=== PATIENT | female | born 2005 | race Two or more races ===

== ENCOUNTER 2025-03-14 15:09 | Emergency (ER) | payer BC, MEDICAID, SELFPAY ==
[2025-03-14 15:10] VITALS: BMI 22.9
[2025-03-14 15:24] VITALS: BP 134/78; PULSE 99; RESP 18; TEMP 36.6; O2SAT 100
--- NOTE | 2025-03-14 16:52 | PD.EDRME ---
[facility]apid Medical Screening [facility] Arrival date/time: 03/14/25 15:09 This is a 19-year-old female that comes into the emergency room with complaints of throat pain and mid left sided back pain. Patient denies any trauma. Patient denies any other symptoms. Patient denies fever chills patient has a mild runny nose patient denies cough. I have greeted and performed a focused initial assessment of this patient. Initial appropriate labs ordered at this time. A comprehensive ED assessment and evaluation of the patient and analysis of all test and completion of medical decision making process will be conducted by additional ED provider. Chief Complaint: Back Pain/Injury Time Seen by Provider: 03/14/25 16:30 Vital signs: Vital Signs Temperature 97.9 F 03/14/25 15:24 Pulse Rate 99 03/14/25 15:24 Respiratory Rate 18 03/14/25 15:24 Blood Pressure 134/78 H 03/14/25 15:24 Pulse Oximetry (%) 100 03/14/25 15:24 Oxygen Delivery Method Room Air 03/14/25 15:24 Exam: Alert and oriented, breathing even and unlabored, Clinical Impression: Back pain
[2025-03-14] MEDS: ACETAMINOPHEN 325 MG TABLET 650 MG PO (17:05)
[2025-03-14] MEDS: IBUPROFEN TAB 400 MG TABLET PO (17:05)
[2025-03-14 18:11] LABS: Collection Type, Urine Voided
[2025-03-14 18:16] LABS: Bacteria,Urine Rare; Bilirubin,Urine Negative (Negative); Blood,Urine Negative (Negative); Clarity,Urine Clear (Clear/Hazy); Color,Urine Lt-Yellow (Lt Yel-Yel); Culture Indicated,Urine Not Indicated; Glucose, Urine Negative (Negative); HCG Qualitative,Urine Negative; Ketones,Urine 1+ (Negative); Leukocyte Esterase,Urine Negative (Negative); Nitrite,Urine Negative (Negative); PH,Urine 6.5 (5.0-7.0); Protein,Urine Negative (Neg - Trace); RBC,Urine 4 /hpf (0-3); Specific Gravity,Urine 1.025 (1.001-1.035); Squamous Epithelial Cell,Urine 4 /hpf (0-5); Urobilinogen,Urine Negative mg/dL (0.0-1.0); WBC,Urine < 1 /hpf (0-5)
[2025-03-14 20:07] VITALS: BP 131/83; PULSE 80; RESP 16; TEMP 37.3; O2SAT 97
[2025-03-14 20:21] LABS: Influenza A Ag Negative; Influenza B Ag Negative; Strep A Rapid Negative (Negative)
[2025-03-14 20:22] LABS: COVID-19 Antigen (In-House) Negative (Negative)
--- NOTE | 2025-03-14 20:26 | PD.EDRME ---
Rapid Medical Screening Exam RME Arrival date/time: 03/14/25 15:09 03/14/25 15:09 This is a 19-year-old female that comes into the emergency room with complaints of throat pain and mid left sided back pain. Patient denies any trauma. Patient denies any other symptoms. Patient denies fever chills patient has a mild runny nose patient denies cough. I have greeted and performed a focused initial assessment of this patient. Initial appropriate labs ordered at this time. A comprehensive ED assessment and evaluation of the patient and analysis of all test and completion of medical decision making process will be conducted by additional ED provider. Chief Complaint: Back Pain/Injury Time Seen by Provider: 03/14/25 16:30 Vital signs: Vital Signs Temperature 97.9 F 03/14/25 15:24 Pulse Rate 99 03/14/25 15:24 Respiratory Rate 18 03/14/25 15:24 Blood Pressure 134/78 H 03/14/25 15:24 Pulse Oximetry (%) 100 03/14/25 15:24 Oxygen Delivery Method Room Air 03/14/25 15:24 RME Narrative: 03/14/25 15:09 This is a 19-year-old female that comes into the emergency room with complaints of throat pain and mid left sided back pain. Patient denies any trauma. Patient denies any other symptoms. Patient denies fever chills patient has a mild runny nose patient denies cough. I have greeted and performed a focused initial assessment of this patient. Initial appropriate labs ordered at this time. A comprehensive ED assessment and evaluation of the patient and analysis of all test and completion of medical decision making process will be conducted by additional ED provider. Exam: Alert and oriented, breathing even and unlabored, Clinical Impression: Back pain
--- NOTE | 2025-03-14 20:33 | EKG_ITS ---
[facility] Test Date: 2025-03-14 Pat Name: GRACE CROFT Department: Room: - Gender: Female Material Controller: : 2005 Requested By: Abilio Mejia Order Number: [id number] Reading MD: Abilio Mejia Measurements Intervals [place] Rate: 83 P: 61 MT: 135 QRS: 56 QRSD: 81 T: 30 QT: 350 QTc: 411 Interpretive Statements SINUS RHYTHM WITH MARKED SINUS ARRHYTHMIA No previous ECG available for comparison /store/S0/[id number].pdf
--- NOTE | 2025-03-14 20:34 | EDNOTE_ITS ---
ED General RME/HPI General Chief complaint: Back Pain/Injury Stated complaint: L UPPER BACK PAIN X3 DAYS; THROAT PAIN X4 DAYS Time Seen by Provider: 03/14/25 16:30 Arrival date/time: 03/14/25 15:09 CC: Throat pain and chest pain with left lateral abdominal pain HPI onset several days ago. Patient states she denies fever chills shortness of breath or difficulty no prior episodes of similar events. Patient is awake alert oriented very anxious at being here has no other complaints. Is currently sucking on a throat lozenge or which has not alleviated the pain that the patient points to her Robert's apple as the source of the pain. Patient has normal phonation normal swallow. RME / HPI RME / HPI narrative: 03/14/25 15:09 This is a 19-year-old female that comes into the emergency room with complaints of throat pain and mid left sided back pain. Patient denies any trauma. Patient denies any other symptoms. Patient denies fever chills patient has a mild runny nose patient denies cough. I have greeted and performed a focused initial assessment of this patient. Initial appropriate labs ordered at this time. A comprehensive ED assessment and evaluation of the patient and analysis of all test and completion of medical decision making process will be conducted by additional ED provider. Exam: Alert and oriented, breathing even and unlabored, Impression: Back pain Related Data Allergies Allergy/AdvReac Type Severity Reaction Status Date / Time No Known Allergies Allergy Verified 03/14/25 15:13 Review of Systems Review of Systems Narrative Review of Systems: GEN: No fever, no chills, no weight loss EYES: No discharge, no visual changes, no pain HEENT: No ear pain, no congestion, + sore throat PULM: No shortness of breath, no cough, no congestion CV: No chest pain, no dyspnea on exertion, no palpitations GI: No nausea, no vomiting, no diarrhea, no pain, no constipation : No frequency, no urgency, no dysuria MUSC/SKEL: No joint pain, no back pain SKIN: No rash PSYCH: No hallucinations, no depression HEME/LYMPH: No easy bleeding or bruising tendencies NEURO: No weakness, no headache Past Medical History Past Medical History CARDIAC: Negative Congestive Heart Failure RESPIRATORY: Negative Chronic Obstructive Pulmonary Disease (COPD) GENITOURINARY: Negative Renal Disease ENDOCRINE: Negative Diabetes Mellitus Type 1 or Diabetes Mellitus Type 2 Social History SMOKING STATUS: Never smoker ED Exam Narrative Physical exam: [General: Not in any acute distress Head normocephalic HEENT: Eyes pupils are PERRLA EOMs are intact mouth pink moist membranes uvula is midline swallow symmetrical phonation is normal. Ears EACs are clear, no exudate TMs are positive cone of light no edema or erythema. Mouth pink moist membranes uvula is midline swallow symmetrical phonation is stable no tonsillar edema. No exudative patches. All other subsystems of HEENT are within acceptable limits Neck is supple nontender no LAD Chest equal chest rise nontender to palpation Respiratory: Clear to auscultation no wheezes crackles or rubs CV: Rate rhythm is regular no murmurs rubs or clicks. Note when the patient was asked to have deep inhalation her heart rate accelerated and DCL rates just as quickly on exhalation to a resting rate is within acceptable limits. Abdomen is soft nontender no masses positive bowel sounds all 4 quadrants Back: No CVA tenderness no spinous process tenderness from cervical spine thoracic and lumbar spine Skin: Intact no petechiae rash induration ulceration or crepitus Extremities: Moving all extremity against resistance cap refill less than 2 seconds neurosensory intact Neuro: Awake alert oriented x3 Glascow coma 15 no focal deficits] Course Quality Measures none Orders Category Date Time Status EKG (ED ONLY) *Do not use* NOW Care 03/14/25 20:33 Completed EKG (ED Only) Stat Exams 03/14/25 20:33 Draft COVID-19 Antigen (In-House) Stat Lab 03/14/25 19:40 Completed FLU A&B [Influenza A & B Rapid Panel] Stat Lab 03/14/25 19:40 Completed Free T4 (Free Thyroxine) Stat Lab 03/14/25 20:52 Completed HCG Qualitative,Urine Stat Lab 03/14/25 17:55 Completed MG [Magnesium] Stat Lab 03/14/25 20:52 Completed Strep A Rapid Stat Lab 03/14/25 19:40 Completed TSH [Thyroid Stimulating Hormone] Stat Lab 03/14/25 20:52 Completed Urinalysis, C/S if Indicated Stat Lab 03/14/25 17:55 Completed Acetaminophen Tab [Tylenol Tab] Med 03/14/25 16:51 Discontinued 650 mg PO X1 ONE Ibuprofen Tab [Motrin Tab] Med 03/14/25 16:51 Discontinued 400 mg PO X1 ONE Vital Signs Vital signs: Vital Signs Temperature 97.9 F 03/14/25 15:24 Pulse Rate 99 03/14/25 15:24 Respiratory Rate 18 03/14/25 15:24 Blood Pressure 134/78 H 03/14/25 15:24 Pulse Oximetry (%) 100 03/14/25 15:24 Oxygen Delivery Method Room Air 03/14/25 15:24 Discharge Plan Plan Patient Disposition: HOME (Self Care) Patient condition on transfer: Stable Prescriptions/Referrals Referrals: Yao Mason MD [Primary Care Provider, Family Practice] - In 1 week Problem List Clinical Impression: Chest pain Patient/Caregiver Discharge Instructions Education Materials: ED Chest Pain, Uncertain Cause Additional Instructions: Your laboratory results do not indicate any acute finding requires emergent or immediate intervention please follow-up with your primary care doctor and use i buprofen or Tylenol for pain. Print Language: [place] Zealander Stand Alone Forms: [employer] Award Info., Work/School Release, Patient Portal Info Letter PA/INVENTORY CONTROL ASSISTANT Supervising Physician PA/INVENTORY CONTROL ASSISTANT Supervising Physician: Abilio Arevalo ENP [facility] Clinical Information Provided by: patient Medical Records reviewed [facility] Meds/Rx considered, not ordered None Labs/Rad/Tests considered, not ordered None Chronic Illness/Social Conditions which may negatively complicate care or outcome(s)-explain: None or not applicable EKG Interpretation EKG #1: EKG Interpretation: EKG performed at 2041 shows a ventricular rate of 8 9 MA interval 131 QRS of 72 QTc of 410 the sinus rhythm with arrhythmias. Labs Labs: interpreted by id Lab(s) Interpretation(s): Magnesium 1.9 TSH of 1.84 free T4 of 1.27. Imaging Imaging interpretation: none Medication Administration(s) Medication Administration History Discontinued Medications Acetaminophen (Acetaminophen 325 Mg Tablet) 650 mg PO X1 ONE Stop: 03/14/25 16:52 Last Admin: 03/14/25 17:05 Dose: 650 mg Documented By: Ibuprofen (Ibuprofen Tab 400 Mg Tablet) 400 mg PO X1 ONE Stop: 03/14/25 16:52 Last Admin: 03/14/25 17:05 Dose: 400 mg Documented By:
[2025-03-14 21:35] LABS: Free T4 (Free Thyroxine) 1.27 ng/dL (0.89-1.76); Magnesium 1.9 mg/dL (1.6-2.6); Thyroid Stimulating Hormone 1.84 uIU/mL (0.55-4.78)
== END 2025-03-14 22:40 | disposition home or self-care (01) ==
PROVIDERS: Emergency Medicine; Nurse Practitioner Family; Registered Nurse General Practice; Emergency Provider Emergency Medicine; PCP Family Medicine
DX: R07.9 Chest pain, unspecified (principal); I49.8 Other specified cardiac arrhythmias
CPT/HCPCS: 36415; 81001; 81025; 83735; 84439; 84443; 87502; 87651; 87811; 93005; 99283; A9270